=== PATIENT | female | born 1985 | race Caucasian/White ===

== ENCOUNTER → 2020-01-29 | Outpatient (CLI) | payer OTHER ==
[~2020-01-29] MED LIST: CYCL10 PO; NAPR550 PO; OXYACE5T PO
== END | disposition home or self-care (01) ==
LOC: LAB SHORT 11:24 → PLD 11:24
DX: D48.5 Neoplasm of uncertain behavior of skin (principal)
CPT/HCPCS: 88305

== ENCOUNTER 2022-03-17 18:11 | Observation (INO) | payer OTHER ==
[~2022-03-17] VITALS: Ht 172.7 cm; Wt 87.0 kg
[2022-03-17] MEDS ORDERED: LEVONOR-ETH ES1 EAC5 PO (18:23)
[2022-03-17 18:43] LABS: BASOPHILS ABSOLUTE AUTO 0.09 K/mm3 (0.00-0.23); BASOPHILS PERCENT AUTO 1 % (0-2); EOSINOPHILS ABSOLUTE AUTO 0.09 K/mm3 (0.00-0.68); EOSINOPHILS PERCENT AUTO 1 % (0-6); Hematocrit 38.1 % (33.0-51.0); Hemoglobin 13.4 g/dL (11.5-16.0); IMMATURE GRAN ABSOLUTE AUTO 0.02 K/mm3 (0.00-0.10); IMMATURE GRAN PERCENT AUTO 0 % (0-1); LYMPHOCYTES ABSOLUTE AUTO 3.03 K/mm3 (0.84-5.20); LYMPHOCYTES PERCENT AUTO 30 % (21-46); MONOCYTES ABSOLUTE AUTO 0.56 K/mm3 (0.16-1.47); MONOCYTES PERCENT AUTO 6 % (4-13); Mean Corpuscular HGB 30.6 pg (26.0-34.0); Mean Corpuscular HGB Conc 35.2 g/dL (31.5-36.5); Mean Corpuscular Volume 87 fL (80-100); Mean Platelet Volume 9.3 fL (9.1-12.4); NEUTROPHILS ABSOLUTE AUTO 6.23 K/mm3 (1.96-9.15); NEUTROPHILS PERCENT AUTO 62 % (41-73); Platelet Count 364 K/mm3 (150-400); RDW Coefficient Variation 11.8 % (11.7-14.2); RDW Standard Deviation 37.5 fL (35.1-46.3); Red Blood Cell Count 4.38 M/mm3 (3.80-5.20); White Blood Cell Count 10.02 K/mm3 (4.00-11.30)
[2022-03-17 19:01] LABS: Albumin, Blood 3.8 g/dL (3.4-5.0); Albumin/Globulin Ratio 1.1 (0.8-1.8); Bilirubin, Total 0.3 mg/dL (0.1-1.0); Bun/Creatinine Ratio 11.7 (12.0-20.0); Calcium, Blood 9.4 mg/dL (8.5-10.1); Creatinine, Blood 0.94 mg/dL (0.40-1.00); Globulin, Blood 3.6 g/dL (2.2-4.0); Potassium, Blood 3.5 mmol/L (3.5-5.5); Total Protein, Blood 7.4 g/dL (6.4-8.2)
--- NOTE | 2022-03-18 01:00 | NUR ---
ARRIVAL PT IS A NEW ADMIT FROM ER, ARRIVED IN NO DISTRESS. C/O 3/10 PAIN DIFFUSE T/O ABD AND IN HER MIDDLE BACK. IMMEDIATE EMESIS FOLLOWED THIS, GREEN BILLIOUS FLUID NOTED. PT STATED SHE FELT BETTER. VSS, BP NOTED TO BE ELEVATED. PT STATES HER BP HAS BEEN HIGH TONIGHT D/T PAIN. PLAN TO FOLLOW UP ON THIS WITH AM VITALS. AMBULATING INDEP AND USING BATHROOM W/O DIFFICULTIES. PT DENIES PASSING FLATTUS SINCE ABD PAIN HAS STARTED. PT NPO SINCE ARRIVING TO THE FLOOR IN ANTICIPATION FOR SURGERY THIS AM. SURGICAL WIPEDOWN COMPLETE. PLAN TO MEDICATE FOR PAIN AND NAUSEA.
--- NOTE | 2022-03-18 05:54 | NUR ---
VSS. PT SLEPT ON AND OFF T/ THE NIGHT. MEDICATED FOR NAUSEA AND PAIN TWICE. HAS BEEN NPO SINCE ARRIVING TO THE FLOOR. PT AMBULATING TO THE BATHROOM AND VOIDING W/O DIFFICULTY. PLAN FOR PT TO GO TO OR TODAY. THE PATIENT IS CURRENTLY RESTING IN BED, IN NO DISTRESS, CALL LIGHT IN REACH.
--- NOTE | 2022-03-18 10:17 | NUR ---
1000 TO DAY SURGERY ACCOMPANIED BY
[2022-03-18] MEDS ORDERED: OXYC5 PO (14:36)
--- NOTE | 2022-03-18 14:48 | NUR ---
1315 RETURNED TO ROOM FROM PACU. LAP SITES X5 TO ABD WITH DERMABOND, NO DRAINAGE. PT REPORTS SHARP ABD PAIN TO UPPER ABD LEVEL 4-5/10 PT DECLINES ANY PAIN MEDS AT THIS TIME. PT REPORTS NAUSEA HAS LESSENED
--- NOTE | 2022-03-18 17:06 | NUR ---
PT REPORTS PAIN WELL CONTROLLED, ABD LAP SITES WITHOUT DRAINAGE. OOB WITH STANDBY ASSIST TO VOID. TO0L REGULAR DIET WITHOUT FURTHER NAUSEA
--- NOTE | 2022-03-19 04:18 | NUR ---
SHIFT SUMMARY POD1 LAP SLIME. X5 LAP SITES CLOSED W/DERMABOND BAIT PACKER. NO DRAINAGE. PATIENT ABLE TO AMBULATE TO BATHROOM AND VOIDS EASILY. TOLERATING PO INTAKE. MEDICATED FOR PAIN PER EMAR, TOLERATING PO PAIN PILLS. DENIES N/V. REPORTS GAS, NO BM. PATIENT VSS, IN NO DISTRESS AND RESTS COMFORTABLY T/O NIGHT. CALL LIGHT IN REACH.
--- NOTE | 2022-03-19 12:45 | NUR ---
1241 DISCHARGED TO HOME WITH . PT REPORTS PAIN IS WELL CONTROLLED, DENIES NAUSEA. AMBULATING IN ROOM, VOIDING CLEAR YELLOW URINE. ABD SITES INTACT WITHOUT REDNESS OR DRAINAGE
== END 2022-03-19 12:41 | disposition home or self-care (01) ==
LOC: ER 18:11 → SURS 18:12 → ER 23:24 → SURS 23:24 → ER 03-18 16:07 → SURS 03-18 16:07
PROVIDERS: Student in an Organized Health Care Education/Training Program; Surgery; ADMIT Surgery
PROC: 0FT44ZZ Resection of Gallbladder, Percutaneous Endoscopic Approach (ICD-10-PCS; principal; 2022-03-18 11:00)
DX: K80.00 Calculus of gallbladder with acute cholecystitis without obstruction (principal); K82.8 Other specified diseases of gallbladder; Z88.5 Allergy status to narcotic agent; Z88.2 Allergy status to sulfonamides
CPT/HCPCS: 36415; 74177; 80053; 83690; 84703; 85025; 88304; 93005; 93010; 96374-59; 96375; 96376; 99285-25; A9270; G0378; J0330; J1100; J1170; J1450; J1885; J2250; J2270; J2405; J2543; J2704; J7030; J7120; Q9967

== ENCOUNTER → 2023-10-05 | Outpatient (CLI) | payer OTHER ==
[~2023-10-05] MED LIST changes: +LEVONOR-ETH ES1 EAC5 PO; +OXYC5 PO
[2023-10-12 10:34] LABS: HPV HIGH RISK BY TMA Not Detected; HPV SOURCE Cervical
== END | disposition home or self-care (01) ==
LOC: LAB 12:40 → LAB SHORT 12:40
PROVIDERS: Family Medicine
DX: Z01.419 Encounter for gynecological examination (general) (routine) without abnormal findings (principal)
CPT/HCPCS: 87624; G0123